=== PATIENT | female | born 1935 | race Caucasian/White ===

== ENCOUNTER 2022-07-06 22:08 | Observation (INO) | payer MEDICARE, SELFPAY ==
--- NOTE | ~2022-07-06 | CT_ITS ---
EXAMINATION: CTA brain carotid DATE: 07/08/2022 12:28 INDICATION: Acute left parietal infarct. TECHNIQUE: Computed tomographic angiography (CTA) of the head was performed without and with 100 mL O mnipaque-350 intravenous contrast. CTA of the neck was performed with intravenous contrast. Automated exposure control and iterative reconstruction technique were employed. The dose-length product was 1 410.11 mGy-cm. Maximum intensity projection and volume rendered 3D-reconstructions were created by kvng herrera technologist on a separate workstation. COMPARISON: Head CT 07/06/2022, brain MRI 07/07/2022 FINDINGS: HEAD CTA: There are acute infarcts in left parietal lobe. There is no intracranial hemorrhage or abno rmal mass lesion. The ventricles are normal in size. The paranasal sinuses are clear. There are likel y changes of ocular lens replacement surgeries. The mastoid air cells are normal. Left vertebral jesse ry is dominant. There is no significant stenosis of basilar artery or the posterior cerebral arteries . The posterior communicating arteries are normal. There is no significant stenosis of the intracrani al internal carotid arteries or anterior or middle cerebral arteries. Anterior communicating artery i s normal. There is no aneurysm. NECK CTA: A calcified left lung nodule and calcified mediastinal lymph node are consistent with old g ranulomatous disease. There are nodules in the thyroid measuring up to 15 mm. There are no pathologic ally enlarged lymph nodes. 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 There is no significant stenosis of the vertebral arteries. There is plaque in the proximal internal carotid a rteries. There is 0% stenosis of the proximal right internal carotid artery relative to normal distal artery lumen diameter (NASCET criteria). There is 0% stenosis of the proximal left internal carotid artery relative to normal distal artery lumen diameter. There is severe cervical spondylosis. IMPRESSION: 1. 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 2. No aneurysm or significant intracranial arterial stenosis. 3. 0% stenosis of the proximal internal carotid arteries relative to normal distal artery lumen diame ters (NASCET criteria). 4. Multinodular goiter. Consider thyroid ultrasound if clinically indicated given the patient's age. Reviewed, dictated and finalized at location A. IMPRESSION: 1. 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 2. No aneurysm or significant intracranial arterial stenosis. 3. 0% stenosis of the proximal internal carotid arteries relative to normal dis johnathon artery lumen diameters (NASCET criteria). 4. Multinodular goiter. Consider thyroid ultrasound if clinically indicated giv en the patient's age.
--- NOTE | ~2022-07-06 | MR_ITS ---
EXAMINATION: MR brain/brain stem wo/w con DATE: 07/07/2022 10:43 INDICATION: Transient ischemic attack. TECHNIQUE: Magnetic resonance imaging (MRI) of the brain and brainstem was performed without and with 10 mL MultiHance intravenous contrast. COMPARISON: Head CT 07/06/2022 FINDINGS: There are acute infarcts in the left parietal lobe. There are scattered areas of nonspecifi c increased T2-weighted signal intensity in the cerebral white matter, which is within normal limits for the patient's age. There is no intracranial hemorrhage or abnormal mass lesion. The ventricles ar e normal in size. There are likely changes of ocular lens replacement surgeries. There is mild mucosa l thickening in right maxillary sinus. The mastoid air cells are normal. IMPRESSION: 1. 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 Reviewed, dictated and finalized at location A.
--- NOTE | ~2022-07-06 | CT_ITS ---
Non-contrast Head CT History: Confusion Technique: Axial non-contrast imaging of the brain was performed. Dose reduction technique was used on this scan by utilizing automated exposure control and iterative reconstruction technique. The dose -length product (DLP) was 605.33 mGy-cm. Findings: There is no evidence of intracranial hemorrhage, mass lesion, or acute infarct. Brain par enchyma appears normal. The ventricles and subarachnoid spaces are normal in size. The calvarium ap pears normal. The visualized paranasal sinuses and mastoid air cells are clear. Impression: No significant abnormality seen. Reviewed, dictated and finalized at location . Impression: No significant abnormality seen.
--- NOTE | ~2022-07-06 | US_ITS ---
EXAMINATION: US carotid duplex BI DATE: 07/07/2022 11:16 INDICATION: Acute infarcts in left parietal lobe. Transient ischemic attack. TECHNIQUE: Grayscale, color Doppler, and pulsed Doppler images of the cervical carotid arteries were obtained. The degree of vessel stenosis is placed in one of the following categories: normal, <50%, 5 0-69%, >=70% but less than near-occlusion, near-occlusion, or total occlusion. Note that percent sten osis relative to normal distal artery lumen diameter is indirectly measured from velocity measurement s as described by Waqar, et al. Radiology 2003; 229:340-346. COMPARISON: None. FINDINGS: RIGHT: The right common carotid artery (CCA) peak systolic velocity (PSV) is 61 cm/s. The right internal car otid artery (ICA) PSV is 69 cm/s. The right ICA end-diastolic velocity (EDV) is 10 cm/s. The right IC A/CCA PSV ratio is 1.1. Grayscale and color Doppler images yield an estimate of <50% diameter reducti on from plaque in the ICA. There is antegrade flow in the right vertebral artery. LEFT: The left CCA PSV is 59 cm/s. The left ICA PSV is 56 cm/s. The left ICA EDV is 15 cm/s. The left ICA/C CA PSV ratio is 1.0. Shadowing plaque obscures the ICA lumen. There is antegrade flow in the left wayne tebral artery. IMPRESSION: 1. <50% stenosis in the right internal carotid artery. 2. <50% stenosis in the left internal carotid artery. Reviewed, dictated and finalized at location A.
[2022-07-06 22:18] VITALS: PULSE 54
--- NOTE | 2022-07-06 22:18 | ECG_ITS ---
Measurements Intervals [place] Rate: 63 P: 60 SD: 151 QRS: 8 QRSD: 85 T: 110 QT: 478 QTc: 492 Interpretive Statements SINUS RHYTHM LEFT ATRIAL ENLARGEMENT INCOMPLETE RIGHT BUNDLE BRANCH BLOCK CONSIDER INFERIOR INFARCT, AGE INDETERMINATE ST-T WAVE ABNORMALITY IN HIGH LATERAL LEADS- CONSIDER ISCHEMIA BASELINE ARTIFACT- I, II, AVR, AVL, V4 ABNORMAL ECG NO PREVIOUS ECG AVAILABLE FOR COMPARISON Electronically Signed On 07-07-2022 6:47:16 CDT by Mitch York D.O.
[2022-07-06 22:31] VITALS: BP 193/67; PULSE 56; RESP 19; O2SAT 100
--- NOTE | 2022-07-06 22:37 | ED.GENADULT ---
HPI - General Adult General Chief complaint: Weakness Stated complaint: AMS w/POSSIBLE SYNCOPAL EPISODE Time Seen by Provider: 07/06/22 22:15 History of Present Illness HPI narrative: Patient 87-year-old female who presents the emergency department with chief complaint of confusion. Patient states around 9 PM she was getting ready for bed and took her medications the patient states that she felt as though she was confused patient reports no weakness in her arms or legs reports no slurred speech patient states that she has not had this happen before Related Data Allergies Allergy/AdvReac Type Severity Reaction Status Date / Time codeine Allergy Severe THROAT Verified 07/06/22 22:17 SWELLING Review of Systems Review of Systems: A 10 system review of systems was completed on the patient and is negative except for what is stated in the HPI. Nursing and ancillary documentation was reviewed. Exam Narrative: GENERAL: Well-appearing, well-nourished, and in no acute distress. HEAD: Normocephalic, atraumatic. EYES: PERRLA and EOMI. ENT: Nares clear, no rhinorrhea or epistaxis. Mucous membranes moist. NECK: Supple. CHEST: Clear to auscultation. No respiratory distress. HEART: Regular rate and rhythm. No murmur heard. Normal peripheral pulses. ABDOMEN: Soft, nontender, nondistended, normal active bowel sounds. EXTREMITIES: Normal range of motion. No edema. SKIN: Warm, dry, no rash. NEURO: No focal deficits. Alert and oriented x3. PSYCH: Normal mood and affect. Course Vital Signs Vital signs: Vital Signs Pulse Rate 54 L 07/06/22 22:18 Pulse Rate 65 07/06/22 23:16 Respiratory Rate 20 07/06/22 23:16 Blood Pressure 171/60 H 07/06/22 23:16 Pulse Oximetry 97 07/06/22 23:16 Medical Decision Making [facility] Narrative Medical decision making narrative: Differential diagnosis includes TIA, CVA, electrolyte abnormality infection, EKG is sinus rhythm rate of [address] elevation or ST depression CT head interpreted by radiology and reviewed by me showed no evidence of acute abnormality. Laboratory studies were obtained which showed a normal CBC electrolytes showed a creatinine of 1.0 lactic acid 1.3 magnesium of 2.0 troponin was less than 0.02 urinalysis is currently pending Patient is currently back to baseline and therefore would not be a thrombolytic candidate. Case was discussed with the hospitalist the patient admitted for observation Vital Signs Vital Signs: Vital Signs Pulse Rate 54 L 07/06/22 22:18 Pulse Rate 65 07/06/22 23:16 Respiratory Rate 20 07/06/22 23:16 Blood Pressure 171/60 H 07/06/22 23:16 Pulse Oximetry 97 07/06/22 23:16 Lab Data 07/06/22 22:55 07/06/22 22:55 Labs: Lab Results 07/06/22 07/06/22 07/06/22 Range/Units 22:55 22:55 22:55 WBC 8.4 (4.5-10.0) K/mm3 RBC 4.31 (4.2-5.4) M/mm3 Hgb 13.0 (12.0-15.0) g/dL Hct 40.2 (37.0-47.0) % MCV 93.3 (80-100) fl MCH 30.2 (26-34) pg MCHC 32.3 (32-36) g/dl RDW 13.9 (11.5-14.5) % Plt Count 441 H (150-375) k/mm3 MPV 8.9 (7.4-10.4) fl Immature Gran % (Auto) 0.8 H (0-0.5) % Neut % (Auto) 60.1 (45.5-73.1) % Lymph % (Auto) 29.2 (18.3-44.2) % [place] % (Auto) 7.4 (2.6-8.5) % Eos % (Auto) 1.7 (0-4.4) % Baso % (Auto) 0.8 (0.2-1.2) % Lymph # (Auto) 2.45 (0.9-3.2) K/mm3 [place] # (Auto) 0.6 (0.1-0.6) K/mm3 Eos # (Auto) 0.1 (0-0.3) K/mm3 Baso # (Auto) 0.1 (0.0-0.1) K/mm3 Abs Immat Gran (auto) 0.07 H (0.00-0.031) K/mm3 Absolute Neuts (auto) 5.1 (1.3-6.7) K/mm3 Absolute Nucleated RBC 0.0 (0.0-0.012) K/mm3 Nucleated RBC % 0.0 (0.0-0.2) % PT (11.1-14.7) Seconds INR APTT (22.3-36.8) SECONDS Sodium 141 (137-145) mmol/L Potassium 4.2 (3.4-5.0) mmol/L Chloride 110 H (98-107) mmol/L Carbon Dioxide 28 (22-30) mmol/L Anion Gap 3 L (8-16) mmol/L
[2022-07-06 23:00] VITALS: BP 179/66; PULSE 60; RESP 17; O2SAT 98
[2022-07-06 23:03] LABS: Basophils Absolute Auto 0.1 K/mm3 (0.0-0.1); Basophils Percent Auto 0.8 % (0.2-1.2); Eosinophils Absolute Auto 0.1 K/mm3 (0-0.3); Eosinophils Percent Auto 1.7 % (0-4.4); Hematocrit 40.2 % (37.0-47.0); Immature Granulocyte Absolute 0.07 K/mm3 (0.00-0.031); Immature Granulocyte Percent A 0.8 % (0-0.5); Lymphocytes Absolute Auto 2.45 K/mm3 (0.9-3.2); Lymphocytes Percent Auto 29.2 % (18.3-44.2); Mean Corpuscular HGB Conc 32.3 g/dl (32-36); Mean Corpuscular Hemoglobin 30.2 pg (26-34); Mean Corpuscular Volume 93.3 fl (80-100); Mean Platelet Volume 8.9 fl (7.4-10.4); Monocytes Absolute Auto 0.6 K/mm3 (0.1-0.6); Monocytes Percent Auto 7.4 % (2.6-8.5); Neutrophils Absolute Auto 5.1 K/mm3 (1.3-6.7); Neutrophils Percent Auto 60.1 % (45.5-73.1); Platelet Count Result 441 k/mm3 (150-375); Red Blood Count 4.31 M/mm3 (4.2-5.4); Red Cell Distribution Width 13.9 % (11.5-14.5); White Blood Count 8.4 K/mm3 (4.5-10.0)
[2022-07-06 23:12] LABS: INR 1.1; Prothrombin Time 13.4 Seconds (11.1-14.7)
[2022-07-06 23:13] LABS: Alanine Aminotransferase 16 U/L (6-35); Alkaline Phosphatase 108 U/L (38-126); Anion Gap 3 mmol/L (8-16); Aspartate Amino Transferase 24 U/L (14-36); Bilirubin,Total 0.4 mg/dL (0.2-1.3); Blood Urea Nitrogen 29 mg/dL (7-17); Calcium 9.5 mg/dL (8.4-10.2); Carbon Dioxide 28 mmol/L (22-30); Chloride 110 mmol/L (98-107); Estimated CRCL calculation 26 ml/min; Estimated Glomerular Filt Rate 53; Glucose 116 mg/dL (65-110); Partial Thromboplastin Time 33.5 SECONDS (22.3-36.8); Potassium 4.2 mmol/L (3.4-5.0); Sodium 141 mmol/L (137-145)
[2022-07-06 23:14] LABS: Lactic Acid Reflex 1.3 mmol/L (0.7-2.0)
[2022-07-06 23:16] VITALS: BP 171/60; PULSE 65; RESP 20; O2SAT 97
[2022-07-06 23:24] LABS: Troponin I < 0.012 ng/mL (0.000-0.034)
[2022-07-07] VITALS (10 sets, daily range): BP systolic 124–183; BP diastolic 53–81; PULSE 43–79; RESP 16; TEMP 36.1–36.5; O2SAT 96–100; BMI 22.2
--- NOTE | 2022-07-07 | ECHO_ITS ---
Patient Info Name: Yue Cardenas Age: 87 years : 1935 Gender: Female Ht: 59 in Wt: 110 lbs BSA: 1.45 m2 HR: 60 bpm BP: 145 / 53 mmHg Heart Rhythm: Sinus Rhythm, Bradycardia Technical Quality: Fair Exam Date: 07/07/2022 12:58 PM Exam Location: [facility] Pulmonary Patient Status: Outpatient Admit Date: 07/07/2022 Staff Ordering Physician: Mo Gay MD Hvac Lead: Jeny Schroeder RDCS Attending Provider: Mouna Rodríguez MD Referring Physician: Victor Hugo MORALES; Exam Type: CA echo doppler w bubble study Study Info Indications - TIA Complete two-dimensional, color flow and Doppler transthoracic echocardiogram is performed with agitated saline. Contrast/Agitated Saline Contrast/Ag. Saline: Agitated Saline Amount: 20.00 ml Administered By: Jacqueline Dillon RDCS Existing IV Access: Yes IV Access Condition: patent with no signs of infiltration Summary 1. Left ventricular chamber dimension is normal. 2. Left ventricular systolic function is normal, estimated at 65-70%. 3. There is mildly increased left ventricular wall thickness. 4. The left ventricular diastolic function is grade I diastolic dysfunction. 5. Right ventricular systolic function is normal. 6. Intact interatrial septum visualized by color flow and agitated saline imaging. Negative bubble study. 7. There is moderate aortic valve sclerosis. 8. There is trace aortic valve regurgitation. 9. The mitral valve annulus is mildly calcified. 10. There is mild mitral valve regurgitation. 11. There is mild tricuspid valve regurgitation. 12. There is mild aortic atherosclerosis. Left Ventricle Left ventricular chamber dimension is normal. Left ventricular systolic function is normal, estimated at 65-70%. There is mildly increased left ventricular wall thickness. The left ventricular diastolic function is grade I diastolic dysfunction. Right Ventricle Right ventricular chamber dimension is normal. Right ventricular systolic function is normal. Left Atria Left atrial chamber dimension is normal. Right Atria Right atrial chamber dimension is normal. Atrial Septum Intact interatrial septum visualized by color flow and agitated saline imaging. Negative bubble study. Aortic Valve The aortic valve is trileaflet. There is moderate aortic valve sclerosis. There is no aortic valve stenosis. There is trace aortic valve regurgitation. Pulmonic Valve The pulmonic valve is not well visualized. Mitral Valve The mitral valve has normal leaflets. There is no mitral valve stenosis. There is mild mitral valve regurgitation. The mitral valve annulus is mildly calcified. Tricuspid Valve There is no significant tricuspid valve stenosis. There is mild tricuspid valve regurgitation. Pericardium/Pleural There is no pericardial effusion. Inferior Vena Cava Normal inferior vena cava with <50% collapse upon inspiration consistent with elevated right atrial pressure, 8 mmHg. Aorta The aortic root size at the sinus of Valsalva is normal. There is mild aortic atherosclerosis. Left Ventricular Outflow Tract Name Value Normal LVOT 2D LVOT Diameter
--- NOTE | 2022-07-07 01:19 | PM.IMHP ---
H&P: HPI History of Present Illness Date/Time: 07/07/22 01:19 Chief Complaint: Altered mental status Narrative: This is an 87-year-old female with past medical history significant for dyslipidemia, type 2 diabetes mellitus, hypertension. Patient presented to the emergency room due to episode of confusion, speech disturbance, when patient was getting ready to go to bed, had been in her usual state of health prior to this, denies any vertigo, lightheadedness, syncope, near syncope, vision changes, headache, no focal weakness, no fevers, no rigors, no chills, no nausea, no vomiting, no abdominal pain, no diarrhea, no leg swelling. Preliminary workup has been essentially nonrevealing patient was found to have a blood pressure systolic in the 190s upon presentation to emergency room. Patient is been placed in observation for further evaluation management and treatment. Review of Systems Review of Systems: Speech disturbance, confusion. Constitutional: Constitutional: Denies chills, Denies fever(s), Denies malaise, Denies night sweats, Denies poor appetite and Denies weakness Eyes: Eyes: Denies change in vision ENT: Denies dysphagia, Denies vertigo, Denies dizziness and Denies odynophagia Cardiovascular: Cardiovascular: Denies chest pain, Denies syncope, Denies irregular heart rhythm, Denies lightheadedness and Denies palpitations Respiratory: Respiratory: Denies chest congestion, Denies cough, Denies excessive phlegm production and Denies dyspnea Gastrointestinal: Gastrointestinal: Denies abdominal pain, Denies dyspepsia, Denies heartburn, Denies diarrhea, Denies nausea and Denies vomiting Genitourinary: Genitourinary: Denies dysuria Musculoskeletal: Musculoskeletal: Denies back pain, Denies joint swelling and Denies muscle weakness Integumentary/Breasts: Skin/Breast: Denies rash Psychiatric: Psychiatric: Reports no additional psychiatric complaints and Reports as per HPI Endocrine: Endocrine: Denies cold intolerance, Denies flushing, Denies heat intolerance, Denies polyphagia, Denies polydipsia and Denies palpitations Hematologic/Lymphatic: Hematologic/Lymphatic: Reports no additional hematologic/lymphatic complaints and Reports as per HPI Allergic/Immunologic: Allergic/Immunologic: Reports no additional allergic/immunologic complaints and Reports as per HPI Meds Home Medications and Allergies Allergies Allergy/AdvReac Type Severity Reaction Status Date / Time codeine Allergy Severe THROAT Verified 07/06/22 22:17 SWELLING Vital Signs Vital Signs - 24 hr 07/06/22 22:18 07/06/22 23:00 07/06/22 22:31 Pulse Rate 54 L 60 56 L Respiratory Rate 17 19 Blood Pressure 179/66 H 193/67 H Pulse Oximetry 98 100 07/06/22 23:16 Pulse Rate 65 Respiratory Rate 20 Blood Pressure 171/60 H Pulse Oximetry 97 Exam Narrative: Patient is laying in a stretcher Const: General: comfortable, no acute distress, well developed, alert, awake and average body habitus Nutritional Appearance: average body habitus Orientation/consciousness: patient oriented x3 Other: Well-appearing HENMT: Head: normal to inspection, normocephalic and atraumatic Ears: hearing grossly normal bilaterally Face/Nose/Sinus: normal facial exam Face and sinus: normal facial exam Eyes: General: appearance normal, both eyes and all related structures Pupils: Equal, round and reactive pupils present EOM: EOMs intact bilaterally Neck: Neck: full ROM, no lymphadenopathy and no JVD Thyroid: thyroid normal Lymphatic: no lymphadenopathy noted Resp: Effort & Inspection: normal respiratory effort and able to speak in complete sentences Auscultation: clear to auscultation bilaterally Cardio: Jugular venous distension: no JVD Rate: regular rate Rhythm: regular rhythm Heart sounds: S1 normal heart sound present and S2 normal heart sound present GI: GI Palp: Yes Soft to palpation and Yes No hepatosplenomegaly present : General: Yes deferred
[2022-07-07 01:23] LABS: Appearance Urine Clear (Clear); Bacteria Urine None Seen /hpf; Bilirubin Urine Negative (Negative); Blood Urine Negative (Negative); Color Urine Yellow (Yellow); Glucose Urine UA Negative (Negative); Ketones Urine Negative (Negative); Leukocyte Esterase Ur 1+ LEU/UL (Negative); Nitrate Urine Negative (Negative); Non Pathogenic Casts 0-2; Protein Urine Negative (Negative); RBC Urine 0-2 /hpf (0-2); Specific Grav Ur 1.018 (1.001-1.035); Squamous Epithelial Cell Urine None seen /hpf (Few); Urobilinogen Urine 0.2 mg/dL (<2.0); pH Urine 6.5 (5.0-9.0)
[2022-07-07 01:35] LABS: Add Urine Microscopic? YES
--- NOTE | 2022-07-07 05:42 | PC.NURSE ---
This patient, Yue Cardenas, was admitted to IMU Room 232-01. Patient/family oriented to hospital policies and general routines including ID bracelet, bed and alarms, visiting hours, pain management, procedures, bathroom and other care routines, personal items, smoking policy, room service/diet, and visiting hours. Information on how to activate the Rapid Response Team has been discussed. Patient/Family are encouraged to report perceived risks to care and to ask questions if they do not understand what they are told or what they should do.
[2022-07-07 05:56] LABS: Troponin I < 0.012 ng/mL (0.000-0.034)
[2022-07-07] MEDS: lisinopriL 10 MG TABLET PO (09:52)
[2022-07-07] MEDS: metFORMIN HCL 500 MG TABLET PO (09:52)
[2022-07-07] MEDS: VERAPAMIL HCL 180 MG TABLET ER PO (09:52)
[2022-07-07] MEDS: ASPIRIN 81 MG ENTERIC TABLET PO (09:55)
--- NOTE | 2022-07-07 14:43 | PM.IMPN ---
Progress Note: A&P Assessment and Plan (1) Brain TIA: Code(s): G45.9 - Transient cerebral ischemic attack, unspecified Status: Acute Assessment and Plan: [facility] head with no acute intracranial abnormalities MRI of the brain in the morning Supportive care Continue to monitor No deficit on physical exam (2) Uncontrolled hypertension: Code(s): I10 - Essential (primary) hypertension Status: Acute Assessment and Plan: Resume home meds Continue to monitor (3) Type 2 diabetes mellitus: Code(s): E11.9 - Type 2 diabetes mellitus without complications Status: Acute Assessment and Plan: Holding metformin Insulin sliding scale as needed (4) Dyslipidemia: Code(s): E78.5 - Hyperlipidemia, unspecified Status: Acute Assessment and Plan: Continue statin Follow-up in the outpatient setting Subjective Date/time seen: 07/07/22 14:43 no new complaints Exam Narrative: Patient is laying in a stretcher Const: General: comfortable, no acute distress, well developed, alert, awake and average body habitus Nutritional Appearance: average body habitus Orientation/consciousness: patient oriented x3 Other: Well-appearing HENMT: Head: normal to inspection, normocephalic and atraumatic Ears: hearing grossly normal bilaterally Face/Nose/Sinus: normal facial exam Face and sinus: normal facial exam Eyes: General: appearance normal, both eyes and all related structures Pupils: Equal, round and reactive pupils present EOM: EOMs intact bilaterally Neck: Neck: full ROM, no lymphadenopathy and no JVD Thyroid: thyroid normal Lymphatic: no lymphadenopathy noted Resp: Effort & Inspection: normal respiratory effort and able to speak in complete sentences Auscultation: clear to auscultation bilaterally Cardio: Jugular venous distension: no JVD Rate: regular rate Rhythm: regular rhythm Heart sounds: S1 normal heart sound present and S2 normal heart sound present : General: Yes deferred Skin: Rashes: no rashes Wounds: no wounds Neuro: General: patient oriented x3, CN's II-XI intact bilaterally and Unable to assess gait Cranial nerves: Yes CN's II-XII intact bilaterally and Yes Equal, round and reactive pupils present Cognition (Neuro): normal cognition Speech: normal speech Gait exam (Neuro): Unable to assess gait Motor exam (neuro): 5/5 motor strength present throughout Extrem: General: normal to inspection, full ROM, no joint enlargement and no pedal edema Objective Data Vital Signs Vital Signs: Vital Signs - 24 hr 07/06/22 22:18 07/06/22 23:00 07/06/22 22:31 Temperature Pulse Rate 54 L 60 56 L Respiratory Rate 17 19 Blood Pressure 179/66 H 193/67 H Pulse Oximetry 98 100 Oxygen Delivery 07/06/22 23:16 07/07/22 05:20 07/07/22 06:06 Temperature 97 F L Pulse Rate 65 64 63 Respiratory Rate 20 16 Blood Pressure 171/60 H 183/81 H Pulse Oximetry 97 98 Oxygen Delivery 07/07/22 06:06 07/07/22 08:00 07/07/22 08:00 Temperature 97.4 F L Pulse Rate 65 65 Respiratory Rate 16 16 Blood Pressure 164/66 H Pulse Oximetry 98 96 96 Oxygen Delivery Room Air Room Air 07/07/22 08:00 07/07/22 11:54 07/07/22 12:00 Temperature 97.2 F L Pulse Rate 79 60 Respiratory Rate 16 Blood Pressure 145/53 H Pulse Oximetry 100 Oxygen Delivery Room Air 07/07/22 12:00 07/07/22 14:00 Temperature Pulse Rate 64 52 L Respiratory Rate Blood Pressure Pulse Oximetry Oxygen Delivery Intake/Output Intake/Output: Intake & Output 07/04/22 07/05/22 07/06/22 07/07/22 23:59 23:59 23:59 23:59 Intake Total 480 Balance 480 Meds/Results Medications: Active Medications Generic Name Dose Route Start Last Admin Trade Name Freq PRN Reason Stop Dose Admin Aspirin 81 mg 07/07/22 10:00 07/07/22 09:55 Aspirin 81 Mg Enteric Tablet PO 81 mg [facility] Administrat
[2022-07-07] MEDS: CLOPIDOGREL BISULFATE 75 MG TABLET PO (16:46)
--- NOTE | 2022-07-07 18:25 | ECG_ITS ---
Measurements Intervals [place] Rate: 52 P: 57 ND: 148 QRS: 14 QRSD: 83 T: 116 QT: 482 QTc: 450 Interpretive Statements SINUS BRADYCARDIA MINIMAL Q WAVES- INFERIOR LEADS ST-T WAVE ABNORMALITY IN HIGH LATERAL LEADS- CONSIDER ISCHEMIA BASELINE ARTIFACT- V4 ABNORMAL ECG COMPARED TO ECG 07/06/2022 23:22:55 SINUS BRADYCARDIA NOW PRESENT Electronically Signed On 07-07-2022 21:49:24 CDT by Mitch York D.O.
[2022-07-07] MEDS: ATORVASTATIN 20 MG TABLET PO (20:04)
[2022-07-08] VITALS (9 sets, daily range): BP systolic 154–192; BP diastolic 51–70; PULSE 54–65; RESP 16; TEMP 36.1–36.5; O2SAT 99–100
[2022-07-08] MEDS: VERAPAMIL HCL ER 120 MG TABLET PO (08:26)
[2022-07-08] MEDS: lisinopriL 10 MG TABLET PO (08:27)
[2022-07-08] MEDS: metFORMIN HCL 500 MG TABLET PO (08:27)
[2022-07-08] MEDS: CLOPIDOGREL BISULFATE 75 MG TABLET PO (08:27)
[2022-07-08] MEDS: ASPIRIN 81 MG ENTERIC TABLET PO (08:31)
--- NOTE | 2022-07-08 10:00 | WPDNEURCNPN ---
Assessment and Plan Assessment and plan (1) Stroke: Code(s): I63.9 - Cerebral infarction, unspecified Status: Acute (2) Dyslipidemia: Code(s): E78.5 - Hyperlipidemia, unspecified Status: Acute (3) Type 2 diabetes mellitus: Code(s): E11.9 - Type 2 diabetes mellitus without complications Status: Acute (4) Uncontrolled hypertension: Code(s): I10 - Essential (primary) hypertension Status: Acute (5) Smoker: Code(s): F17.200 - Nicotine dependence, unspecified, uncomplicated Status: Acute Plan Yue Cardenas is a 87 year old female with a history of hypertension, diabetes, hyperlipidemia who presented on 07/06 due to confusion and speech change. Found to have acute left parietal stroke. - Check CTA brain/carotid - Surface echocardiogram pending - Check LDL and A1c - Continue Lipitor -- may need to adjust based on LDL level (goal <70) - Aspirin and Plavix x 3 weeks, then aspirin monotherapy - Discussed importance of smoking cessation Consult date: 07/08/22 Time Seen: 12:30 Reason for consult: Stroke HPI: Yue Cardenas is a 87 year old female with a history of hypertension, diabetes, hyperlipidemia who presented on 07/06 due to confusion and speech change. Patient was in her usual state of health when going to bed. She then developed confusion and speech dysfunction. She presented to [facility], where her BP was in the 190s systolic. By the time she arrived, her symptoms has resolved. CT head was negative. CTA brain/carotid was not done. Her carotid doppler showed < 50% stenosis bilaterally. MRI brain showed acute left parietal infarct. She was started on aspirin and Plavix. She is also on Lipitor 20mg daily. Echo has been ordered, but not yet complete. She feels back to her baseline this morning. She has no complaints. She does smoke about 6 cigarettes per day. She was taking aspirin intermittently but not daily. Review of Systems Constitutional: Constitutional: Reports no additional constitutional complaints Eyes: Eyes: Reports no additional eye complaints ENT: Reports system reviewed and no additional complaints, except as documented Cardiovascular: Cardiovascular: Reports no additional cardiovascular complaints Respiratory: Respiratory: Reports no additional respiratory complaints Gastrointestinal: Gastrointestinal: Reports no additional gastrointestinal complaints Genitourinary: Genitourinary: Reports no additional female genitourinary complaints Musculoskeletal: Musculoskeletal: Reports no additional musculoskeletal complaints Integumentary/Breasts: Skin/Breast: Reports system reviewed and no additional complaints, except as docu Neurologic: Reports as per HPI Psychiatric: Psychiatric: Reports no additional psychiatric complaints PMFSH Family History Family History Mother Cerebrovascular accident Sibling Breast cancer Sibling Breast cancer Social History Social History Smoking packs per day: 0.5 Smoking cigarettes per day: 10.0 Years smoked: 40 Smoking pack-years: 20.00 Smoking status: Light tobacco smoker Tobacco type: cigarettes Second hand tobacco smoke exposure: No Alcohol intake: never Substance use: never Lack of Transportation: No Lack of Food: Never True Current Housing: I Have Housing Concerned About Future Housing: No Difficulty Paying Gas/Electric Bills: No Difficulty Paying for Meds: No Currently Unemployed: No Education: High School Diploma/GED Difficulty w/ Childcare or Family Care: No Spiritual care concerns: No Meds Home Medications and Allergies Home Medications Medication Instructions Recorded Confirmed Type atorvastatin 20 mg tablet 20 mg PO HS 07/07/22 07/07/22 History lisinopril 10 mg tablet 10 mg PO DAILY 07/07/22 07/07/22 History metformin 500 mg tablet 500 mg P
[2022-07-08 11:17] LABS: LDL Cholesterol Direct 64 mg/dL
--- NOTE | 2022-07-08 12:57 | PM.DS ---
DS: Admitting Diagnosis Discharge Date July 08, 2022 Admitting Diagnosis CVA DS: Discharge Diagnosis Discharge Diagnosis (1) Brain TIA: Code(s): G45.9 - Transient cerebral ischemic attack, unspecified Status: Acute Assessment and Plan: Place in observation Neuroccks q.4 CT head with no acute intracranial abnormalities MRI of the brain in the morning Supportive care Continue to monitor No deficit on physical exam (2) Uncontrolled hypertension: Code(s): I10 - Essential (primary) hypertension Status: Acute Assessment and Plan: Resume home meds Continue to monitor (3) Type 2 diabetes mellitus: Code(s): E11.9 - Type 2 diabetes mellitus without complications Status: Acute Assessment and Plan: Holding metformin Insulin sliding scale as needed (4) Dyslipidemia: Code(s): E78.5 - Hyperlipidemia, unspecified Status: Acute Assessment and Plan: Continue statin Follow-up in the outpatient setting DS: Summary Hospital Course Hospital Course: 87-year-old female past history of smoking came in with CVA. Aspirin Plavix on discharge. Follow-up Neurology. LDL is at goal. Continue statin as well. Time Spent with Patient Time attestation: Total time spent providing and/or coordinating discharge services: Exam Narrative: Patient is laying in a stretcher Const: General: comfortable, no acute distress, well developed, alert, awake and average body habitus Nutritional Appearance: average body habitus Orientation/consciousness: patient oriented x3 Other: Well-appearing HENMT: Head: normal to inspection, normocephalic and atraumatic Ears: hearing grossly normal bilaterally Face/Nose/Sinus: normal facial exam Face and sinus: normal facial exam Eyes: General: appearance normal, both eyes and all related structures Pupils: Equal, round and reactive pupils present EOM: EOMs intact bilaterally Neck: Neck: full ROM, no lymphadenopathy and no JVD Thyroid: thyroid normal Lymphatic: no lymphadenopathy noted Resp: Effort & Inspection: normal respiratory effort and able to speak in complete sentences Auscultation: clear to auscultation bilaterally Cardio: Jugular venous distension: no JVD Rate: regular rate Rhythm: regular rhythm Heart sounds: S1 normal heart sound present and S2 normal heart sound present : General: Yes deferred Skin: Rashes: no rashes Wounds: no wounds Neuro: General: patient oriented x3, CN's II-XI intact bilaterally and Unable to assess gait Cranial nerves: Yes CN's II-XII intact bilaterally and Yes Equal, round and reactive pupils present Cognition (Neuro): normal cognition Speech: normal speech Gait exam (Neuro): Unable to assess gait Motor exam (neuro): 5/5 motor strength present throughout Extrem: General: normal to inspection, full ROM, no joint enlargement and no pedal edema DS: Data Data Completed and Pending Labs on day of discharge: Labs from last 24 hours 07/07/22 07/06/22 05:25 22:55 Hemoglobin A1c 6.0 H LDL Cholesterol Direct 64 Discharge Plan Discharge Attending physician on discharge: Mo Gay Consulting providers: Martha Bashir Discharging Clinician: Mo Gay Patient Disposition: Home, Self-Care Activity: no preference Diet: as tolerated Patient Instructions: Antibiotic Form, Transient Ischemic Attack (DC), Ischemic Stroke (DC) Stand Alone Forms: General Discharge Information Follow-up/Referrals: Martha Bashir MD [Physician] - Discharge Medications: New aspirin 81 mg Tablet,Delayed Release (Dr/Ec) 81 mg PO QAM Qty: 30 0RF clopidogrel 75 mg Tablet 75 mg PO QAM 30 Days Qty: 30 0RF Continued metformin 500 mg tablet 500 mg PO DAILY atorvastatin 20 mg tablet 20 mg PO HS verapamil 180 mg tablet extended release 180 mg PO DAILY lisinopril 10 mg tablet 10 mg PO DAILY Date of admission: 0
== END 2022-07-08 16:15 | disposition home or self-care (01) ==
LOC: ANHED 07-07 01:41 → ANHIMU 07-07 06:17
PROVIDERS: Student in an Organized Health Care Education/Training Program; Admitting Provider Internal Medicine; Emergency Provider Emergency Medicine; PCP Internal Medicine; Visit Provider Chiropractor
DX: G45.9 Transient cerebral ischemic attack, unspecified (principal); E78.5 Hyperlipidemia, unspecified; E11.9 Type 2 diabetes mellitus without complications; I10 Essential (primary) hypertension; F17.210 Nicotine dependence, cigarettes, uncomplicated
CPT/HCPCS: 36415; 70450; 70496; 70498; 70553; 80053; 81001; 83036; 83605; 83721; 83735; 84484; 85025; 85610; 85730; 87086; 87088; 93005; 93306; 93880; 96375; 99285; A9270; A9577; G0378; Q9967

== ENCOUNTER 2024-04-23 10:44 | Emergency (ER) | payer MEDICARE, SELFPAY ==
--- NOTE | ~2024-04-23 | XR_ITS ---
XR lumbar spine 2-3V DATE: 04/23/2024 13:19 INDICATION: Midline lumbar back pain TECHNIQUE: AP, lateral, coned lateral lumbosacral views COMPARISON: None FINDINGS: There is diffuse osteopenia. There is reversal of lumbar lordosis. There is mild lumbar dextroscoliosis. There is moderately severe degenerative disease and spurring throughout the lumbar and lumbosacral sp ine. Included lower thoracic and lumbar pedicles are intact. No fracture or bone destruction or spondyloli sthesis is detected. The sacroiliac joints are intact. Is extensive calcification of the abdominal aorta and iliac arteries, without evidence of abdominal a ortic aneurysm. IMPRESSION: Osteopenia Reversal of lumbar lordosis Moderately severe degenerative disc disease and prominent spurring throughout the lumbar spine Reviewed, dictated and finalized at location [facility] IMPRESSION: Osteopenia Reversal of lumbar lordosis Moderately severe degenerative disc disease and prominent spurring throughout t he lumbar spine
[2024-04-23 11:26] VITALS: BP 152/61; PULSE 57; RESP 16; TEMP 36.6; O2SAT 98
[2024-04-23 12:32] VITALS: BP 143/94; PULSE 62; RESP 15; TEMP 36.7; O2SAT 98
--- NOTE | 2024-04-23 12:54 | ED.BACK ---
HPI - Back Pain/Injury General Chief Complaint: Back Pain/Injury Stated Complaint: back pain, cannot stand straight Time Seen by Provider: 04/23/24 12:30 History of Present Illness HPI Narrative: 88-year-old female with a past medical history including hypertension, diabetes, previous stroke with no residual deficits. Patient presents to the emergency room with chief complaint of low back pain for 1 week time. Patient states she is having difficulty standing straight upright due to the pain. Denies any injuries or twisting motions, states she has otherwise been doing housework but no traumatic injuries. No falls or accidents. States that her pain is not responding well to Tylenol. Has not tried any other medications. Denies any numbness or tingling in her legs, no saddle anesthesias, no loss of continence. No weakness in the extremities, she is able to ambulate but with a hunched back secondary to the pain. No sharp shooting pain down her legs, no pain towards her abdomen, groin or more proximally than the lumbar spine. No history of spinal surgeries. Related Data Home Medications ?Medication ?Instructions ?Recorded ?Confirmed ?Last Taken ?Type atorvastatin 20 mg tablet 20 mg PO HS 07/07/22 07/07/22 Unknown History lisinopril 10 mg tablet 10 mg PO DAILY 07/07/22 07/07/22 Unknown History metformin 500 mg tablet 500 mg PO DAILY 07/07/22 07/07/22 Unknown History verapamil 180 mg tablet,extended 180 mg PO DAILY 07/07/22 07/07/22 Unknown History release Allergies Allergy/AdvReac Type Severity Reaction Status Date / Time codeine Allergy Severe THROAT Verified 04/23/24 13:33 SWELLING Review of Systems Review of Systems: As reviewed above in HPI [facility] Family History Family History Mother Cerebrovascular accident Sibling Breast cancer Sibling Breast cancer Social History Social History Smoking packs per day: 0.5 Smoking cigarettes per day: 10.0 Years smoked: 40 Smoking pack-years: 20.00 Smoking status: Light tobacco smoker Tobacco type: cigarettes Second hand tobacco smoke exposure: No Alcohol intake: never Substance use: never Substance use type: does not use Lack of Transportation: No Lack of Food: Never True Current Housing: I Have Housing Concerned About Future Housing: No Difficulty Paying Gas/Electric Bills: No Difficulty Paying for Meds: No Currently Unemployed: No Education: High School Diploma/GED Difficulty w/ Childcare or Family Care: No Living arrangements: with family Spiritual care concerns: No Exam Narrative: GENERAL: [Well-appearing, well-nourished, and in no acute distress.] HEAD: [Normocephalic, atraumatic.] EYES: [PERRLA and EOMI.] ENT: Nares clear, no rhinorrhea or epistaxis. Mucous membranes moist. NECK: Supple. CHEST: [Clear to auscultation. No respiratory distress.] HEART: [Regular rate and rhythm]. No murmur heard. [Normal peripheral pulses.] ABDOMEN: [Soft, nondistended], [nontender], [No rigidity or guarding] EXTREMITIES: Normal range of motion. [No edema.] Focal lumbar tenderness to palpation midline but no step-offs deformities. Full range of motion in bilateral lower extremities with hip and knee flexion, extension, ankle plantar and dorsiflexion with full strength 5/5 equal SKIN: Warm, dry, no rash. NEURO: [No focal deficits]. Alert and oriented [x3.]. EHL FHL 5/5, ambulating without assistance, no ataxia, no neurological deficits in the upper extremities, no facial asymmetries. No saddle anesthesias. PSYCH: [Normal mood and affect.] Course Vital Signs Vital signs: Vital Signs Temperature 36.6 C 04/23/24 11:26 Pulse Rate 57 L 04/23/24 11:26 Respiratory Rate 16 04/23/24 11:26 Blood Pressure 152/61 H 04/23/24 11:26 Pulse Oximetry 98 04/23/24 11:26 Oxygen Delivery Room Air 04/23/24 11:26 Temperature 36.7 C 04/23/24 12:32 Pulse Rate 62 04/23/24 12:32 Respiratory Rate 15 04/23/24 12:32 Blood Pressure 143/94 H 04/23/24 12:32 Pulse Oximetry 98 04/23/24 12:32 Oxygen Delivery Room Air 04/23/24 12:32 MDM - Back Pain/Injury MDM Narrative Medical decision making narrative: 88-year-old female with history of type 2 diabetes, hypertension, previous stroke with no deficits. Presents with low lumbar back pain for 1 week time. No appreciable injuries or trauma. No neurological complaints or deficits. She has normal strength and sensation throughout both legs, no weakness or footdrop, no sciatica type symptoms of sharp electrical pain, no step-offs deformities to lumbar or back region. I did ambulate the patient in the room and she is able to take steps without impairment or appreciable deficits. Patient does appear uncomfortable especially with palpation of her back. Does not have any red flag symptoms of cauda equina or cord as medullaris or any other central pathology in her back, pain is likely musculoskeletal nature. Will obtain x-rays of her lumbar region and blood work as well given her age and PCP informing the daughter that she might be dehydrated. Patient was provided Toradol and low-dose Robaxin for analgesia and re-evaluated thereafter. Patient was re-evaluated after pain controlling medications and had significant improvement. Ambulating without any difficulties at this time. X-ray shows some osteopenia, severe degenerative disc disease and prominent spurring but no acute osseous process otherwise. Laboratory studies were largely unremarkable with normal renal function and normal electrolytes. Patient is safe and stable for discharge home at this time with regular PCP follow-up and instructions to inquire about physical therapy. Patient and family verbalized understanding or safe for discharge at this time. Medical Records Attestation: I reviewed the patient's medical records. Lab Data Attestation: I reviewed the patient's lab results. 04/23/24 13:46 04/23/24 13:46 Labs: Lab Results 04/23/24 Range/Units 13:46 WBC 7.6 (4.5-10.0) K/mm3 RBC 4.60 (4.2-5.4) M/mm3 Hgb 13.9 (12.0-15.0) g/dL Hct 42.7 (37.0-47.0) % MCV 92.8 (80-100) fl MCH 30.2 (26-34) pg MCHC 32.6 (32-36) g/dl RDW 14.0 (11.5-14.5) % Plt Count 494 H (150-375) k/mm3 MPV 8.9 (7.4-10.4) fl Immature Gran % (Auto) 0.4 (0-0.5) % Neut % (Auto) 57.7 (45.5-73.1) % Lymph % (Auto) 35.1 (18.3-44.2) % [place] % (Auto) 5.4 (2.6-8.5) % Eos % (Auto) 0.9 (0-4.4) % Baso % (Auto) 0.5 (0.2-1.2) % Lymph # (Auto) 2.65 (0.9-3.2) K/mm3 [place] # (Auto) 0.4 (0.1-0.6) K/mm3 Eos # (Auto) 0.1 (0-0.3) K/mm3 Baso # (Auto) 0.0 (0.0-0.1) K/mm3 Abs Immat Gran (auto) 0.03 (0.00-0.031) K/mm3 Absolute Neuts (auto) 4.4 (1.3-6.7) K/mm3 Absolute Nucleated RBC 0.000 (0.0-0.012) K/mm3 Nucleated RBC % 0.0 (0.0-0.2) % Sodium 139 (137-145) mmol/L Potassium 4.1 (3.4-5.0) mmol/L Chloride 109 H (98-107) mmol/L Carbon Dioxide 25 (22-30) mmol/L Anion Gap 5 (4-12) mmol/L BUN 17 D (7-17) mg/dL Creatinine 0.87 (0.7-1.0) mg/dL Estim Creat Clear Calc 48 ml/min Estimated GFR > 60 (59 - ) Glucose 106 (65-110) mg/dL Calcium 9.9 (8.4-10.2) mg/dL Imaging Data Attestation: I personally reviewed and interpreted this imaging study as follows: My impression: Impressions Lumbar Spine X-Ray 04/23/24 13:23 IMPRESSION: Osteopenia Reversal of lumbar lordosis Moderately severe degenerative disc disease and prominent spurring throughout the lumbar spine Discharge Plan Discharge Clinical Impression: Lumbago, Acute lumbar back pain Patient Disposition: Home, Self-Care Condition: Stable Instructions: Antibiotic Form, Acute Low Back Pain (ED), Lower Back Exercises (ED) Additional Instructions: Follow-up with your regular primary care provider, return with any new or worsening concerns. We will send you home with pain control medications. Return to the ER if you have increased pain in your back, you develop lower extremity weakness/numbness/paralysis, you have numbness or tingling in your private parts, or you are unable to control your ability to urinate/stool. Patient Language: [place] Prescriptions: New acetaminophen [Tylenol Extra Strength] 500 mg tablet 1,000 mg PO TID PRN (Reason: pain) Qty: 30 0RF ketorolac 10 mg tablet 10 mg PO Q8H PRN (Reason: pain) 5 Days Qty: 20 0RF Rx Instructions: maximum total duration of 5 days from all oral, intranasal, or parenteral formulations methocarbamol 750 mg tablet 750 mg PO TID PRN (Reason: pain) Qty: 20 0RF lidocaine 5 % adhesive patch,medicated 1 patch topical DAILY Qty: 15 0RF Rx Instructions: leave on most painful area for up to 12 hrs No Action metformin 500 mg tablet 500 mg PO DAILY atorvastatin 20 mg tablet 20 mg PO HS verapamil 180 mg tablet extended release 180 mg PO DAILY lisinopril 10 mg tablet 10 mg PO DAILY aspirin 81 mg Tablet,Delayed Release (Dr/Ec) 81 mg PO QAM Qty: 30 0RF clopidogrel 75 mg Tablet 75 mg PO QAM 30 Days Qty: 30 0RF Follow-up/Referrals: Eusebio,MD Mo [Primary Care Provider] - Time of Disposition: 14:21
[2024-04-23] MEDS: methocarbamoL 750 MG TABLET PO (13:43)
[2024-04-23] MEDS: KETOROLAC 15 MG/ML VIAL (*BKC) IV PUSH (13:44)
[2024-04-23 13:52] LABS: Basophils Percent Auto 0.5 % (0.2-1.2); Eosinophils Absolute Auto 0.1 K/mm3 (0-0.3); Eosinophils Percent Auto 0.9 % (0-4.4); Hematocrit 42.7 % (37.0-47.0); Hemoglobin 13.9 g/dL (12.0-15.0); Immature Granulocyte Absolute 0.03 K/mm3 (0.00-0.031); Immature Granulocyte Percent A 0.4 % (0-0.5); Lymphocytes Absolute Auto 2.65 K/mm3 (0.9-3.2); Lymphocytes Percent Auto 35.1 % (18.3-44.2); Mean Corpuscular HGB Conc 32.6 g/dl (32-36); Mean Corpuscular Hemoglobin 30.2 pg (26-34); Mean Corpuscular Volume 92.8 fl (80-100); Mean Platelet Volume 8.9 fl (7.4-10.4); Monocytes Absolute Auto 0.4 K/mm3 (0.1-0.6); Monocytes Percent Auto 5.4 % (2.6-8.5); Neutrophils Absolute Auto 4.4 K/mm3 (1.3-6.7); Neutrophils Percent Auto 57.7 % (45.5-73.1); Platelet Count Result 494 k/mm3 (150-375); White Blood Count 7.6 K/mm3 (4.5-10.0)
[2024-04-23 14:02] LABS: Anion Gap 5 mmol/L (4-12); Blood Urea Nitrogen 17 mg/dL (7-17); Calcium 9.9 mg/dL (8.4-10.2); Carbon Dioxide 25 mmol/L (22-30); Chloride 109 mmol/L (98-107); Estimated CRCL calculation 48 ml/min; Estimated Glomerular Filt Rate > 60; Glucose 106 mg/dL (65-110); Potassium 4.1 mmol/L (3.4-5.0); Sodium 139 mmol/L (137-145)
== END 2024-04-23 14:42 | disposition home or self-care (01) ==
PROVIDERS: Emergency Provider Student in an Organized Health Care Education/Training Program; PCP Internal Medicine
DX: M54.50 Low back pain, unspecified (principal); I10 Essential (primary) hypertension; E11.9 Type 2 diabetes mellitus without complications
CPT/HCPCS: 36415; 72100; 80048; 85025; 96374; 99284; A9270; J1885

== ENCOUNTER 2024-06-14 08:32 | Outpatient (CLI) | payer MEDICARE, SELFPAY | END 2024-06-14 08:33 | disposition home or self-care (01) | LOC: MICIMG 08:32 | PROVIDERS: PCP Internal Medicine; Visit Provider Internal Medicine | DX: M47.816 Spondylosis without myelopathy or radiculopathy, lumbar region (principal); M51.26 Other intervertebral disc displacement, lumbar region; M48.061 Spinal stenosis, lumbar region without neurogenic claudication; M54.31 Sciatica, right side | CPT/HCPCS: 72158; A9579 ==